=== PATIENT | female | born 1965 | race Caucasian/White ===

== ENCOUNTER → 2019-02-14 | Outpatient (CLI) | payer OTHER ==
[~2019-02-14] MED LIST: COPAXONE20 MG/SYR SC; FLOMAX0.4 MG PO; HYDROCODONE-AP1 EAC6 PO; NORCO 5-325 TA1 EACH PO; OXYCODONE HCL 55 MG PO; ZOFRAN ODT4 MG PO
== END ==
LOC: M.RAD 14:04
DX: Z12.31 Encounter for screening mammogram for malignant neoplasm of breast (principal)

== ENCOUNTER → 2019-02-18 | Outpatient (CLI) | payer OTHER ==
--- NOTE | 2019-02-21 18:06 | PATH ---
[address] [address] PATHOLOGY RPT PROCEDURE Name: RUKHSANA BARONE Room: [facility] Ash#: [id number] Admission: 02/18/19 Date of : 65 Discharge: Report #: [id number] Path Case #: [id number] [facility] Accession Number: [id number] . 01 Material submitted: . breast - RIGHT BREAST MASS, 10:00, 4CMFN. Modifiers: right, 10:00 . 01 Clinical history: . 0.74 x 0.79 x 0.76 cm mass . 02 Diagnosis: RIGHT BREAST MASS, 10:00, 4 CM FROM NIPPLE, IMAGE GUIDED CORE BIOPSIES: - INFILTRATING PLEOMORPHIC LOBULAR CARCINOMA (HIGH GRADE/III OF III), SPANNING AT LEAST 16 MM. SEE COMMENT. LBQ/02/21/2019 . 02 Comment: Specimen type: Image guided core biopsies Tumor site: Right breast, 10:00, 4 cm from nipple Tumor quantitation: Approximately 25% of submitted tissues Histologic type: Lobular carcinoma Histologic grade: High grade (III/III) Tubules, nuclei and mitoses: 3, 3, 2 LVSI: Not identified Microcalcifications: Not identified Markers: Breast tumor profile pending Block: A1 . The tumor infiltrates prominently in an "Macanese file" fashion, also noted to extend in between individual adipocytes. Prominent lobular neoplasia including lobular carcinoma in situ (LCIS) is also seen. No ductal carcinoma in situ is seen. Properly controlled immunohistochemical stains performed on A3 show the following results supporting the classification: . E-cadherin: Negative Keratin AE1/AE3: Positive . Breast tumor profile studies are pending on A1 and will the subject of an addendum report. Nisha Zabala ([facility] Breast Navigator) notified of preliminary findings at approximately 1310 on 02/20/2019. Reviewed with Dr. You Paulino, who agrees with the diagnosis. (SOFYA/db; 02/20/2019) . 02 Electronically signed: . Luigi Hammer MD, Pathologist NPI- [id number] . 01 [place] [address] PATHOLOGY RPT PROCEDURE Name: RUKHSANA BARONE Room: [facility] Nilsa#: [id number] Admission: 02/18/19 Date of : 65 Discharge: Report #: [id number] Path Case #: [id number] Gross description: . Received in formalin labeled "Rukhsana Barone, right breast biopsy," and additionally labeled on the requisition as "10:00, 4 CFN," are multiple needle cores of yellow-howard fibrofatty tissue measuring 2.9 x 2.7 x 0.5 cm in aggregate dimensions. The tissue is submitted in its entirety in cassette A1 through A3. The cold ischemic time is unknown. The total formalin fixation time is greater than 7 hours and less than 72 hours. (TSD; 02/18/2019) TOB/TOB . 02 Pathologist provided ICD-10: C50.911 . 02 CPT . 396101, B50979, V77020 Specimen Comment: A courtesy copy of this report has been sent to Specimen Comment: [phone], , . Specimen Comment: Report sent to ,DR HART / DR ZABALA Performed at: 01 [facility] [id number] [facility] [address], [place] [id number] MD Solis Sherman MD Phone: [phone] Performed at: 02 [facility] [address], [place], [place] [id number] MD Luigi Hammer MD Phone: [phone]
== END | disposition home or self-care (01) ==
LOC: M.RAD 11:40
DX: C50.911 Malignant neoplasm of unspecified site of right female breast (principal); Z98.890 Other specified postprocedural states

== ENCOUNTER → 2019-03-05 | Outpatient (CLI) | payer OTHER ==
[~2019-03-05] MED LIST changes: +MICARDIS40 MG PO
== END ==
LOC: M.MRI 14:26
DX: C50.911 Malignant neoplasm of unspecified site of right female breast (principal); R92.2 Inconclusive mammogram

== ENCOUNTER → 2019-03-07 | Outpatient (CLI) | payer OTHER ==
[~2019-03-07] MED LIST changes: -MICARDIS40 MG PO
--- NOTE | 2019-03-10 21:28 | CON ---
[address] [address] CONSULTATION Name: RUKHSANA STEELE Room: [facility].#: [id number] Admission: 03/07/19 Attend Phys: Nate Baron MD Discharge: Date of : 65 Report #: [id number] THIS REPORT FOR: //name// CC: Nate Figueroa MD DATE OF SERVICE: 03/07/2019 [facility] RADIATION ONCOLOGY CONSULTATION NOTE REFERRING PHYSICIANS: Include Dr. Harmony Gonzales, Dr. Cristhian Dr, Brock, Dr. Manana Elia. PRIMARY SITE AND HISTOPATHOLOGY: The patient right now has findings consistent with early stage right breast cancer. HISTORY OF PRESENT ILLNESS: The patient had a bilateral mammogram on 02/14/2019 which revealed an asymmetry in the upper aspect of the right breast. The patient had a right diagnostic mammogram on 02/18/2019, which revealed a spiculated mass in the upper outer quadrant of the right breast. The patient ended up having a right breast ultrasound on 02/18/2019, which revealed a mass in the upper outer quadrant of the right breast at the 10 o'clock position. The patient had a biopsy of this mass and the pathology was consistent with an infiltrating pleomorphic lobular carcinoma involving the right breast that measured at least 1.6 cm. The breast cancer was 92.99% estrogen receptor positive, 89.25% progesterone receptor positive and HER2/luz negative. The patient denied having any palpable masses in the right breast or the left breast. She denied having any nipple discharge. The patient indicated that she had seen her medical oncologist, Dr. Figueroa, and her surgeon, Dr. Brower. Right now, she appears to be leaning towards mastectomy. PAST MEDICAL HISTORY: The patient has multiple sclerosis and hypertension. ALLERGIES: She has no known drug allergies. MEDICATIONS: Telmisartan and Copaxone. PAST SURGICAL HISTORY: The patient had ankle surgery about 4 years ago at [facility]. OBSTETRICS AND GYNECOLOGY: Menarche at age 14[place] [address] CONSULTATION Name: RUKHSANA STEELE MAY Room: [facility]#: [id number] Admission: 03/07/19 Attend Phys: Nate Baron MD Discharge: Date of : 65 Report #: [id number] when her last menstrual period was. She is 4, para 4. FAMILY HISTORY: Paternal aunt had ovarian cancer. 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 She rides horses. She is . She has 2 daughters and 2 sons. Ethanol: she does not drink alcohol-containing beverages. Cigarettes: she does not smoke cigarettes. REVIEW OF SYSTEMS: GENERAL: She denied having fevers or chills. SKIN: She denied having any color changes or itching. LYMPH NODES: The patient denied having enlarged or painful glands. ENDOCRINE: She denied having any hot or cold intolerance. HEMATOLOGY/IMMUNOLOGY: The patient denied having any anemia or recent bleeding. MUSCULOSKELETAL: The patient denied having any arthritis. HEAD AND NECK: The patient denied having any headaches or migraines. RESPIRATORY: The patient denied having shortness of breath. CARDIOVASCULAR: The patient denied having any palpitations. GASTROINTESTINAL: She denied having any nausea or vomiting. NEUROLOGIC: She denied having any focal weakness. PHYSICAL EXAMINATION: With my nurse, Perla Reese, present: VITAL SIGNS: Height 5 feet 4 inches, weight 157.6 pounds, blood pressure 140/91, and oxygen saturation 97%. LYMPH NODES: She had no cervical, supraclavicular or axillary lymphadenopathy. GENERAL AND PSYCHIATRIC: She was alert, oriented, and in no acute distress. EYES:Pupils were equal, round, reactive to light, and accommodation. Extraocular movements were intact. HEAD, EAR, NOSE, AND THROAT: Mouth had no visible lesions. HEART: Had a regular rate and rhythm, without murmur. LUNGS: were clear to auscultation. BREASTS: Right breast had some bruising in the area where she had a biopsy with a seroma measured 2.5 cm. x 2.5 cm. There were no other suspicious palpable masses involving the right breast. There were no suspicious palpable masses involving the left breast. ABDOMEN: Not tender. Spleen was not palpable. Liver was at the costal margin. EXTREMITIES: Had no clubbing, cyanosis or edema. NEUROLOGIC:Cranial nerves II to XII were intact. Sensation was intact. She had 5/5 strength in her extremities. ASSESSMENT AND PLAN: The patient has findings consistent with a probable early lobular cancer of the right breast. The patient was told that her local [address] [address] CONSULTATION Name: RUKHSANA STEELE Room: [facility] Ash#: [id number] Admission: 03/07/19 Attend Phys: Nate Baron MD Discharge: Date of : 65 Report #: [id number] treatment options include breast conservation therapy versus mastectomy. This is due to studies such as NSABP B-06 which randomized patients with early breast cancer to total mastectomy versus lumpectomy and lymph node sampling alone versus lumpectomy and lymph node sampling and radiation therapy. At 20 years followup, there was no significant difference in overall survival in the 3 treatment groups. The addition of radiation therapy to lumpectomy reduced the local failure rate from 39% to 14%. So the risks, benefits, logistics of radiation therapy were explained to the patient in detail. At this time, she is leaning towards a mastectomy. She was told that radiation therapy is a standard part of breast conservation therapy. On the other hand, for mastectomy, radiation therapy is only used in patients that have risk factors that put her at higher risk for local recurrence such as positive lymph nodes, positive margins, larger tumors that are 5 cm or greater in diameter. The patients that are not offered radiation therapy after mastectomy are those that do not have these risk factors for local recurrence. The patient was told to make an appointment to see me in about 6 weeks, which should be after her operation, so her pathology can be reviewed to see if there is a role for radiation therapy as part of her management plan. Thank you very much for this consult. <ELECTRONICALLY SIGNED> By: Nate Baron MD 03/10/19 2128 1510 0525Nate Baron MD /nt
== END ==
LOC: M.RTH 04:48
DX: C50.911 Malignant neoplasm of unspecified site of right female breast (principal); I10 Essential (primary) hypertension

== ENCOUNTER 2019-04-01 11:59 | Observation (INO) | payer OTHER ==
[~2019-04-01] VITALS: Ht 162.6 cm; Wt 79.8 kg
--- NOTE | ~2019-04-01 | OP ---
[address] [address] OPERATIVE REPORT Name: RUKHSANA STEELE Room: [address] [place] Ash#: [id number] Admission: 04/01/19 Attend Phys: Adelaida Brower DO Discharge: 04/02/19 Date of : 65 Report #: [id number] THIS REPORT FOR: //name// CC: Adelaida Gonzales DATE OF SERVICE: 04/01/2019 SURGEON: Dr. Howard. UX RESEARCH ASSOCIATE: None. PREOPERATIVE DIAGNOSES: 1. Right breast cancer. 2. Acquired absence of bilateral breasts. POSTOPERATIVE DIAGNOSES: 1. Right breast cancer. 2. Acquired absence of bilateral breasts. PROCEDURE PERFORMED: Bilateral immediate breast reconstruction with tissue instructor industrial design placement. INDICATION FOR PROCEDURE: This is a 54-year-old female with a diagnosis of right breast cancer. She plans to undergo bilateral skin-sparing mastectomies with Dr. Brower and also wishes for bilateral immediate breast reconstruction using tissue expanders. She understands the risks including but not limited to pain, bleeding, infection, fluid collection, implant failure, implant extrusion, secondary flap cosmesis, mastectomy flap necrosis, poor cosmesis, asymmetry, scar, need for another operation and/or procedure. All questions answered. The patient states that she desires to proceed. PROCEDURE IN DETAIL: Dr. Brower completed her bilateral mastectomies as well as right sentinel lymph node biopsy. Please see her operative note for her portion of the procedure. After she was completed, the case was signed over to me. The patient was redraped and all new instruments were used. The bilateral mastectomy wounds were copiously irrigated with antibiotic-containing solution and all bleeding points were cauterized. Assessment of the mastectomy flaps shows viable flaps with no visible dermis. Therefore, the decision was made to place bilateral prepectoral tissue expanders. The mastectomy was measured to be approximately 13.5 cm therefore the 12 cm base with tissue instructor industrial design was selected. Given the robust mastectomy flaps, the decision was made not to place AlloDerm within the incision from the reconstruction. The right tissue instructor industrial design was placed first. This was washed with triple antibiotic saline solution containing bacitracin, vancomycin and gentamicin. The [place] [address] OPERATIVE REPORT Name: RUKHSANA STEELE Room: [address] [place] Ash#: [id number] Admission: 04/01/19 Attend Phys: Adelaida Brower DO Discharge: 04/02/19 Date of : 65 Report #: [id number] butterfly needle. All air was removed and 180 mL of injectable normal saline was placed within the tissue instructor industrial design. This tissue instructor industrial design was then transferred into the right breast pocket. All three tabs were then secured to pectoralis fascia using 2-0 PDS taking care not to puncture the implant. The overlying skin was then closed using 3-0 Monocryl in layered fashion. Attention was then turned to the left breast. The left breast implant was also washed with triple antibiotic containing solution. All air was removed and it was filled with 180 mL of injectable normal saline. Prior to placement of the tissue expanders, the gloves were changed, the skin was reprepped with Betadine and clean towels were placed. The left breast tissue instructor industrial design was secured to pectoralis fascia again using 2-0 PDS sutures. The overlying skin was closed using 3-0 Monocryl. Also, just prior to tissue instructor industrial design placement, two #19 GENEVA drains were placed and secured with 3-0 nylon. The inferior drain ran medially along the IMF and the superior drain traveled superiorly and into the axilla and then medially. A Dermabond was then placed over the incisions and a soft dressing was placed. Counts were correct at the completion of the case. The patient tolerated the procedure well. She was extubated and transferred to the recovery area in stable condition. There were no complications. IMPLANTS: Left implant, reference # 133-MV-12-T, serial #[id number]; right breast implant, Allergan 133+ MV, reference #133P-MV - 12-T, serial #[id number]. By: 1212 1647Sierra Howard MD /nt
[~2019-04-01 11:59] MED LIST changes: +MICARDIS40 MG PO
[2019-04-01 12:23] LABS: HEMATOCRIT 39.9 % (37.0-47.0); HEMOGLOBIN 13.3 gm/dL (12.0-15.0)
[2019-04-01 12:35] LABS: CREATININE 0.8 mg/dL (0.6-1.3); POTASSIUM 3.8 mmol/L (3.5-5.1)
[2019-04-01 12:45] VITALS: BP 134/75
--- NOTE | 2019-04-01 15:55 | EKG ---
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: YOLA : 1965 Requested By: Adelaida Brower Order Number: [id number] Niko MD: Gigi Dumont Measurements Intervals [place] Rate: 76 P: 45 WA: 198 QRS: -14 QRSD: 102 T: 30 QT: 382 QTc: 430 Interpretive Statements Sinus rhythm Multiple premature complexes, vent & supraven Low voltage, precordial leads Compared to ECG 05/11/2016 16:41:34 Atrial premature complex(es) no longer present Electronically Signed On 04-01-2019 15:55:08 CDT by Gigi Dumont [email or web address] <ELECTRONICALLY SIGNED> By: Gigi Dumont MD, FAC 04/01/19 1555 1321 1321 Gigi Dumont MD, [facility] /EPI
[2019-04-01 20:50] VITALS: BP 139/54
[2019-04-02] VITALS: BP 132/57
[2019-04-02 03:50] VITALS: BP 121/56
[2019-04-02 05:15] LABS: ABSOLUTE MONOCYTES 0.8 thou/uL (0.0-1.2); ABSOLUTE NEUTROPHILS 9.6 thou/uL (1.6-8.1); BASOPHILS 0.1 %; HEMATOCRIT 33.7 % (37.0-47.0); HEMOGLOBIN 11.4 gm/dL (12.0-15.0); LYMPHOCYTES 8.5 %; MCH 30.3 pg (26.0-34.0); MCHC 33.7 g/dL (28.0-37.0); MCV 89.7 fL (80.0-100.0); MONOCYTES 7.1 %; NUCLEATED RBCS 0 /100WBC; PLATELET COUNT* 195 thou/uL (150-400); POLYS 84.3 %; RBC 3.76 mil/uL (4.20-5.00); RDW-CV 13.5 % (10.5-14.5); WBC 11.3 thou/uL (4.0-11.0)
[2019-04-02 05:29] LABS: CALCIUM 8.6 mg/dL (8.5-10.1); CREATININE 0.8 mg/dL (0.6-1.3); POTASSIUM 4.4 mmol/L (3.5-5.1)
[2019-04-02 08:00] VITALS: BP 125/62
[2019-04-02 10:06] VITALS: BP 125/62
[2019-04-02 13:14] VITALS: BP 125/62
--- NOTE | 2019-04-07 10:46 | OP ---
[address] [address] OPERATIVE REPORT Name: NGA EUGENEDONGRUKHSANA MAY Room: [address] [place] Ash#: [id number] Admission: 04/01/19 Attend Phys: Adelaida Brower DO Discharge: 04/02/19 Date of : 65 Report #: [id number] THIS REPORT FOR: //name// CC: Adelaida Gonzales DICTATED BY: Gary Justice DO DATE OF SERVICE: 04/01/2019 PREOPERATIVE DIAGNOSIS: Right breast cancer. POSTOPERATIVE DIAGNOSIS: Right breast cancer. SURGEON: Adelaida Brower MD MANAGER RESTAURANT: Balwinder Justice, PGY-4 SECOND MANAGER RESTAURANT: Amisha Russell, PGY-2 OPERATION PERFORMED: Bilateral mastectomy with right sentinel lymph node dissection. ANESTHESIA: General and local. ESTIMATED BLOOD LOSS: 20 mL. SPECIMENS REMOVED: Left breast, right breast and right superficial sentinel lymph node. COMPLICATIONS: None. DISPOSITION: PACU and then admission for observation. HISTORY OF PRESENT ILLNESS: The patient is a very pleasant 54-year-old female who presented to the office after having been found to have a right breast cancer. We had thoroughly evaluated the patient and elected to perform a bilateral mastectomy. After a thorough discussion with the patient, we also recommended a right sentinel lymph node dissection. A complete description of procedure was reviewed in detail with the patient during her office visit. All risks, benefits, and complications were discussed at that time. She is also having a reconstruction performed by plastic surgeon today, Dr. Howard at the completion of our procedure. DESCRIPTION OF PROCEDURE: After appropriate consents were obtained, [place] [address] OPERATIVE REPORT Name: RUKHSANA STEELE Room: [address] [place] Ash#: [id number] Admission: 04/01/19 Attend Phys: Adelaida Brower, DO Discharge: 04/02/19 Date of : 65 Report #: [id number] patient was taken to the operating room and laid in supine position. She had SCDs placed on bilateral lower extremities and safety strap placed across her lap. Arms were placed out at her sides. Prior to coming to the OR suite, the patient did go to Nuclear Medicine to have technetium injection at the four quadrants of her areola for detection of a sentinel lymph node. All lines were placed by Anesthesia at this time. The patient was sedated and intubated by Anesthesia without difficulty. Her chest as well as her upper half of the upper extremities and axilla were prepped and draped in a standard sterile fashion. We then injected the patient's areola using blue dye in all four quadrants of the areola to help with uptake of the sentinel lymph node for further identification. After the patient was prepped and draped in standard sterile fashion, a timeout was performed to correctly identify the patient and procedure. We started with some 0.5% Marcaine along our presumed incision sites at each breast for local anesthesia. We then used a marker to anita out our sternal notch as well as our subxiphoid process and then measured out equally either side of the breast to perform a skin-sparing mastectomy. We started with the left breast, the breast that was proven to not have any identifiable malignancy. We made our incision using a #10 blade scalpel. We then carried this down through subcutaneous tissue in all four quadrants of the breast, specifically up to the clavicle, medially to the sternum, inferiorly to inframammary fold and laterally to the serratus anterior. We controlled bleeding during this dissection using electrocautery. Once we were satisfied with our margins of our dissection, we then started medially and carried this down to the anterior pectoralis fascia. Once the fascia was encountered, the breast was removed very carefully. Once the breast was completely removed, we marked it using 2 separate sutures. The short suture was on the superior aspect of the breast and the long sutures on the lateral aspect of the breast. We then thoroughly irrigated the chest wall to ensure there was no further bleeding and that was reoccurring was adequately controlled once again using electrocautery. We placed a wet lap within the cavity and then turned our attention to the right breast. The same procedure was performed on the right side, specifically using a #10 blade scalpel and then carrying this down through subcutaneous tissue until we encountered the margins of our right mastectomy. These margins were the infraclavicular area, the medial aspect of the sternum, the inframammary fold and the serratus anterolaterally. Once we were satisfied with our dissection, we then removed the breast along the anterior pectoralis fascia using electrocautery. We passed the breast off and then once again marked the superior and lateral aspect with short and long sutures. We did obtain the Neoprobe to identify the highest anita of uptake of the breast, which was around 7700 and then we turned our attention to the right axilla to further dissection for a sentinel lymph node. We were able to identify a lymph node with 4700 uptake and we traced it until we found a blue lymph node from the dye we previously injected. This lymph node was excised using sharp and electrocautery dissection and this was placed on the field and then further identified using the Neoprobe and again uptake of 4700. This was passed off a specimen as right sentinel lymph node and sent to pathology for further review. We then irrigated [address] [address] OPERATIVE REPORT Name: RUKHSANA STEELE MAY Room: [address] [place] Ash#: [id number] Admission: 04/01/19 Attend Phys: Adelaida Brower DO Discharge: 04/02/19 Date of : 65 Report #: [id number] the right breast cavity and identified any minor bleeding that was occurring was adequately controlled using electrocautery. We then placed Ibeth within each breast cavity to ensure hemostasis and placed 2 moist laps in preparation for the patient's reconstruction with Dr. Howard, who is a plastic surgeon and to follow our case. At this time, the final timeout was performed. All counts were correct x 2. Dr. Brower was present and scrubbed for the entirety of the procedure. <ELECTRONICALLY SIGNED> By: Adelaida Brower DO 04/07/19 1046 1604 1741Crah Brower DO /nt
== END 2019-04-02 15:59 | disposition home or self-care (01) ==
LOC: M.SUR 11:59 → M.TBA-ER 15:44 → M.2W 15:44 → M.TBA-ER 15:44 → M.2W 21:17
PROVIDERS: ADMIT Surgery
DX: C50.911 Malignant neoplasm of unspecified site of right female breast (principal); Z90.13 Acquired absence of bilateral breasts and nipples; Z79.899 Other long term (current) drug therapy

== ENCOUNTER → 2019-12-01 | Outpatient (CLI) | payer OTHER | LOC: M.LAB 11-12 11:16 → M.MRI 08:54 | DX: C50.911 Malignant neoplasm of unspecified site of right female breast (principal); M85.88 Other specified disorders of bone density and structure, other site; E28.39 Other primary ovarian failure ==

== ENCOUNTER → 2020-03-03 | Outpatient (CLI) | payer OTHER | LOC: M.ULTRA 14:25 | DX: Z09 Encounter for follow-up examination after completed treatment for conditions other than malignant neoplasm (principal); Z98.82 Breast implant status ==

== ENCOUNTER 2021-06-12 15:46 | Emergency (ER) | payer OTHER ==
[~2021-06-12] VITALS: Ht 162.6 cm; Wt 71.7 kg
[2021-06-12] MEDS ORDERED: LISINOPRIL10 MG PO (16:04)
[2021-06-12 16:26] LABS: ABSOLUTE EOSINOPHILS 0.1 thou/uL (0.0-0.7); ABSOLUTE MONOCYTES 0.5 thou/uL (0.0-1.2); ABSOLUTE NEUTROPHILS 4.1 thou/uL (1.6-8.1); BASOPHILS 0.4 %; EOSINOPHILS 2.1 %; HEMATOCRIT 34.9 % (37.0-47.0); HEMOGLOBIN 11.9 gm/dL (12.0-15.0); LYMPHOCYTES 29.8 %; MCH 29.9 pg (26.0-34.0); MCHC 34.2 g/dL (28.0-37.0); MCV 87.2 fL (80.0-100.0); MONOCYTES 7.3 %; MPV 7.7 fl. (7.2-11.1); NUCLEATED RBCS 0 /100WBC; PLATELET COUNT* 245 thou/uL (150-400); POLYS 60.4 %; RDW-CV 13.4 % (10.5-14.5); WBC 6.9 thou/uL (4.0-11.0)
[2021-06-12 16:35] LABS: CALCIUM 8.7 mg/dL (8.5-10.1); POTASSIUM 3.8 mmol/L (3.5-5.1)
[2021-06-12 16:39] LABS: ALBUMIN 4.3 g/dL (3.4-5.0); TOTAL BILIRUBIN 0.3 mg/dL (<0.1-1.0); TOTAL PROTEIN 7.2 g/dL (6.4-8.2)
[2021-06-12 17:29] LABS: URINE BILIRUBIN NEGATIVE (Negative); URINE BLOOD 3+ (Negative); URINE CLARITY CLEAR; URINE COLOR YELLOW; URINE GLUCOSE-RANDOM NEGATIVE (Negative); URINE KETONES NEGATIVE (Negative); URINE LEUKOCYTES-REFLEX NEGATIVE (Negative); URINE NITRITE-REFLEX NEGATIVE (Negative); URINE PROTEIN NEGATIVE (Negative); URINE SPECIFIC GRAVITY <= 1.005 (1.005-1.030); URINE UROBILINOGEN 0.2 E.U./dl (0.2-1.0)
[2021-06-12 17:38] LABS: SQUAMOUS 0-3 Few /LPF (0-3); URINE WBC-REFLEX 0-5 Rare /HPF (0-5)
[2021-06-12 17:39] LABS: BACTERIA-REFLEX 1-9 Few /HPF (None Seen); CASTS None Seen /LPF (None Seen); CRYSTALS None Seen /LPF (None Seen)
[2021-06-12] MEDS ORDERED: FLOMAX0.4 MG PO (18:04)
[2021-06-12] MEDS ORDERED: IBUPROFEN 800800 M1 PO (18:04)
[2021-06-12] MEDS ORDERED: ZOFRAN ODT4 MG PO (18:04)
[2021-06-12] MEDS ORDERED: HYDROCODON-ACE1 EAC7 PO (18:08)
[2021-06-12 18:18] VITALS: BP 154/70
== END 2021-06-12 18:18 | disposition home or self-care (01) ==
LOC: M.ERS 15:46
PROVIDERS: Nurse Practitioner Family
DX: N20.1 Calculus of ureter (principal); I10 Essential (primary) hypertension; Z98.890 Other specified postprocedural states; Z85.3 Personal history of malignant neoplasm of breast